=== PATIENT | female | born 1995 | race Caucasian/White ===

== ENCOUNTER 2018-12-11 19:08 | Emergency (ER) | payer OTHER ==
[~2018-12-11] VITALS: Ht 154.9 cm; Wt 63.0 kg
[2018-12-11 19:14] VITALS: BP 118/62
--- NOTE | 2018-12-11 19:14 | NUR ---
to bed # 09 ambulatory
[2018-12-11 19:51] VITALS: BP 118/62
--- NOTE | 2018-12-11 19:51 | NUR ---
Patient discharged with v/s stable. Written and verbal after care instructions given and explained. Patient alert, oriented and verbalized understanding of instructions. Ambulatory with steady gait. All questions addressed prior to discharge. ID band removed. Patient advised to follow up with PMD. Rx of OFLOXACIN, MOTRIN given. Patient educated on indication of medication including possible reaction and side effects. Opportunity to ask questions provided and answered.
== END 2018-12-11 19:51 | disposition home or self-care (01) ==
LOC: MED 19:08
DX: H60.92 Unspecified otitis externa, left ear (principal)
CPT/HCPCS: 99283